=== PATIENT | male | born 1950 | race Caucasian/White ===

== ENCOUNTER → 2022-06-07 09:19 | Outpatient (CLI) | payer MEDICARE, SELFPAY ==
--- NOTE | ~2022-06-07 | CT_ITS ---
EXAMINATION: CT abdomen pelvis wo/w con DATE: 06/07/2022 10:15 INDICATION: Microscopic hematuria TECHNIQUE: Computed tomography (CT) of the abdomen and pelvis was performed without intravenous contr ast. CT of the abdomen and pelvis was then performed with a total of 130 mL Omnipaque 350 intravenous contrast using a double-bolus technique for simultaneous opacification of the renal parenchyma and r enal collecting system. The dose-length product (DLP) was 1822.72 mGy-cm. Automated exposure control and iterative reconstruction technique were employed. COMPARISON: None FINDINGS: Minimal dependent atelectasis is present in the lung bases. The heart size is normal. The g allbladder is surgically absent. There is a 3 mm cyst of the left hepatic lobe. The spleen, pancreas, and adrenal glands are normal. The kidneys are unremarkable. No stones are identified in the kidneys , ureters, or bladder. No hydronephrosis or hydroureter. No suspicious renal or urothelial lesion charlie ntified. No pathologically enlarged abdominal or pelvic lymph nodes are identified. No free intraperi toneal gas or evidence of bowel obstruction. Colonic diverticulosis is present without evidence of di verticulitis. The appendix measures up to 8 mm but contains gas and is without periappendiceal inflam matory change. There is a rosalinda appearance to the small bowel mesentery with sparing surrounding the mesenteric vessels. There is mild lumbar spondylosis. IMPRESSION: 1. No CT correlate for the patient's symptoms. 2. Findings consistent with sclerosing mesenteritis. 3. Dilated appendix without additional findings suggestive of appendicitis, likely normal variant. Reviewed, dictated and finalized at location B. IMPRESSION: 1. No CT correlate for the patient's symptoms. 2. Findings consistent with sclerosing mesenteritis. 3. Dilated appendix without additional findings suggestive of appendicitis, lik sherry normal variant.
--- NOTE | ~2022-06-07 | XR_ITS ---
EXAMINATION: XR abdomen/kub 1V INDICATION: Microscopic hematuria TECHNIQUE: Supine views of the abdomen were obtained on 2 radiographs. COMPARISON: None FINDINGS: No urolithiasis is identified. There are phleboliths of the pelvis. The bowel gas pattern i s normal. Cholecystectomy clips are noted. There is mild osteoarthritis of the hips. A moderate volum e of colonic stool is present. IMPRESSION: 1. No urolithiasis identified. Reviewed, dictated and finalized at location B.
[2022-06-07 09:55] LABS: Estimated Glomerular Filt Rate > 60
== END ==
PROVIDERS: PCP Internal Medicine; Visit Provider Urology
DX: R31.29 Other microscopic hematuria (principal)
CPT/HCPCS: 74018; 74178; Q9967